=== PATIENT | female | born 1970 | race Hispanic/Latino ===

== ENCOUNTER 2024-08-16 17:00 | Emergency (ER) | payer OTHER, SELFPAY ==
--- NOTE | ~2024-08-16 | XR_ITS ---
EXAMINATION: XR foot LT min 3V DATE: 08/16/2024 17:24 INDICATION: Left foot pain. Injury. TECHNIQUE: 4 views of left foot were obtained. COMPARISON: None. FINDINGS: Alignment is normal. No fracture. There is mild osteoarthritis of first metatarsophalangeal joint and some of the interphalangeal joints and calcaneocuboid joint. There is an enthesophyte at p lantar aspect of calcaneal tuberosity. IMPRESSION: 1. No fracture. Reviewed, dictated and finalized at location A. IMPRESSION: 1. No fracture.
[2024-08-16 17:13] VITALS: BP 138/85; PULSE 99; RESP 16; TEMP 37.2; O2SAT 100
[2024-08-16 17:15] VITALS: BP 138/85; PULSE 99; RESP 16; TEMP 37.2; O2SAT 100
--- NOTE | 2024-08-16 17:39 | ED.LOWEXIN ---
HPI - Extremity Injury (Lower) General Chief Complaint: Extremity Injury, Lower Stated Complaint: Left Ankle Pain Time Seen by Provider: 08/16/24 17:39 Source: patient Mode of arrival: ambulatory Limitations: no limitations History of Present Illness HPI Narrative: 54-year-old female presents with complaint of pain to left foot. Patient missed last step walking down steps this morning and twisted left foot. Patient has slight limp when ambulatory. Arrived wearing tennis shoes. Patient concern for fracture. All systems reviewed and negative except as noted above. Related Data Home Medications Medication Instructions Recorded Confirmed No Home Medications 08/16/24 08/16/24 Allergies Allergy/AdvReac Type Severity Reaction Status Date / Time Penicillins Allergy Rash Verified 08/16/24 17:14 Review of Systems Review of Systems: CONSTITUTIONAL: Denies fever, chills, or sweats. EYES: Denies visual changes, redness, or discharge. ENT: Denies rhinorrhea, congestion, sore throat, or otalgia. CARDIOVASCULAR: Denies chest pain, palpitations, or edema. RESPIRATORY: Denies cough or dyspnea. GASTROINTESTINAL: Denies abdominal pain, nausea, vomiting, or diarrhea. GENITOURINARY: Denies dysuria or hematuria. SKIN: Denies rash or itching. MUSCULOSKELETAL: Denies back pain . Reports pain and swelling to left foot. NEUROLOGIC: Denies headache, numbness, or weakness. PSYCHIATRIC: Denies anxiety or depression. All other systems reviewed are negative, except as documented in HPI. PMFSH Comments At time of signature, agree with nursing past medical, surgical, social and family history. There is no relevant family history pertinent to the presenting complaint. Exam Narrative: GENERAL: This is a well-nourished, well-developed patient, in no apparent distress. HEAD: normocephalic, atraumatic. EYES: PERRL. Sclera clear/white. Vision is grossly intact. EARS: External ears normal NOSE: External nose normal NECK: Neck supple, non-tender without lymphadenopathy, masses or thyromegaly. CARDIOVASCULAR: Regular rate and rhythm without murmurs, gallops, or rubs. RESPIRATORY: Clear to auscultation. Breath sounds equal bilaterally. No wheezes, rales, or rhonchi. SKIN: warm, Dry, intact with no suspicious lesions or rash, good texture and turgor. NEURO: awake, alert, and oriented to person, place and time. There were no obvious focal neurologic abnormalities. EXTREMITIES: Bruising and swelling and to lateral aspect left foot. Tenderness on palpation. No deformity. Range of motion and distal neurovascularly intact. Course Course Level of Care: Express Care Visit Vital Signs Vital signs: Vital Signs Temperature 37.2 C 08/16/24 17:13 Pulse Rate 99 08/16/24 17:13 Respiratory Rate 16 08/16/24 17:13 Blood Pressure 138/85 08/16/24 17:13 Pulse Oximetry 100 08/16/24 17:13 Oxygen Delivery Room Air 08/16/24 17:13 Temperature 37.2 C 08/16/24 17:15 Pulse Rate 99 08/16/24 17:15 Respiratory Rate 16 08/16/24 17:15 Blood Pressure 138/85 08/16/24 17:15 Pulse Oximetry 100 08/16/24 17:15 Oxygen Delivery Room Air 08/16/24 17:15 Reviewed MDM - Extremity Injury (Lower) MDM Narrative Medical decision making narrative: x-ray of left foot negative for fracture. Discussed results with patient. Patient offered Eric wrap to treat sprain, patient did not feel was necessary. Recommend rice, ibuprofen or Tylenol. Patient is aware of diagnosis, understands and agrees to treatment plan. Anticipatory guidance given. Patient agrees to follow-up as directed and is aware of reasons to seek care at the emergency department. Portions of this record may have been created with voice recognition software Imaging Data My impression: Agree with radiologist Radiologist's impression: EXAMINATION: XR foot LT min 3V DATE: 08/16/2024 17:24 INDICATION: Left foot pain. Injury. TECHNIQUE:
== END 2024-08-16 17:45 | disposition home or self-care (01) ==
PROVIDERS: Emergency Provider Nurse Practitioner Family
DX: S93.602A Unspecified sprain of left foot, initial encounter (principal); X50.9XXA Other and unspecified overexertion or strenuous movements or postures, initial encounter; E78.00 Pure hypercholesterolemia, unspecified
CPT/HCPCS: 73630; 99203; G0463